=== PATIENT | male | born 1935 | race Caucasian/White ===

== ENCOUNTER 2019-04-12 06:19 | Inpatient (IN) | payer MEDICARE ==
[~2019-04-12] VITALS: Ht 172.7 cm; Wt 66.7 kg
[~2019-04-12 06:19] MED LIST: ASPIR-TRIN325 MG PO; CIPRO500 MG PO; COLACE100 MG PO; CORGARD40 MG PO; CORGARD80 MG PO; COUMADIN2.5 MG PO; COUMADIN5 M2 PO; FLOMAX0.4 MG PO; HYDROCHLOROTHIA25 MG PO; KLOR-CON 1010 ME1 PO; Meclizine25 MG PO; Motrin,Rufen800 MG PO; PROSCAR5 MG PO; PYRIDIUM200 MG; VICODIN 5/500 505 MG PO; [UNRECOGNIZED DRUG - REMARK]
[2019-04-12 06:20] VITALS: BP 162/87
--- NOTE | 2019-04-12 06:30 | NUR ---
PT PROMPTED THAT WE WILL NEED URINE. GIVEN URINAL.
--- NOTE | 2019-04-12 06:54 | NUR ---
PTS FLUIDS INITIATED PER DOC ORDERS. HE IS COMPLAINING OF BACK PAIN. BED IS IN LOW POSITION. WILL CONTINUE TO MONITOR.
[2019-04-12 07:15] LABS: BASO # 0.1 10*3/uL (0.0-0.1); BASO % 0.7 % (0.0-1.0); EOS # 0.1 10*3/uL (0.0-0.4); HEMATOCRIT 38.5 % (42.0-52.0); HEMOGLOBIN 12.5 g/dl (14.0-18.0); LYMPH # 1.1 10*3/uL (1.3-4.4); LYMPH % 7.6 % (27.0-41.0); MEAN CELL VOLUME 90.8 fl (80.0-94.0); MEAN CORPUSCULAR HGB 29.5 pg (27.0-31.0); MEAN CORPUSCULAR HGB CONC 32.5 g/dl (33.0-37.0); MEAN PLATELET VOLUME 9.4 fl (9.6-12.3); MONO # 0.4 10*3/uL (0.1-1.0); MONO % 2.5 % (3.0-9.0); NEUT # 12.8 10*3/uL (2.3-7.9); NEUT % 87.9 % (47.0-73.0); PLATELET COUNT AUTOMATED 324 10*3/uL (130-400); RED BLOOD COUNT 4.24 10*6/uL (4.50-5.90); RED CELL DISTRI WIDTH 14.2 % (0-14.5); WHITE BLOOD COUNT 14.5 10*3/uL (4.8-10.8)
[2019-04-12 07:28] LABS: INTERNATIONAL NORM RATIO 0.9 (2.0-3.5)
--- NOTE | 2019-04-12 07:30 | NUR ---
[place] 2.[address] [place].
[2019-04-12 07:31] LABS: ALKALINE PHOSPHATASE 73 U/L (45-117); BUN 23 mg/dl (7-24); CHLORIDE 101 mmol/L (98-107); CREATININE 1.23 mg/dL (0.70-1.30); LIPASE 140 U/L (73-393); POTASSIUM 3.2 mmol/L (3.5-5.1); SGOT/AST 20 IU/L (3-35); SGPT/ALT 25 U/L (12-78); SODIUM 134 mmol/L (136-145); TOTAL PROTEIN 7.8 gm/dL (6.4-8.2)
[2019-04-12 07:32] LABS: TROPONIN I < 0.015 ng/ml (<0.045)
[2019-04-12 08:07] LABS: BILIRUBIN NEGATIVE (NEGATIVE); BLOOD 2+ (NEGATIVE); CLARITY SL CLOUDY (CLEAR); COLOR YELLOW (YELLOW); GLUCOSE NEGATIVE (NEGATIVE); KETONE NEGATIVE (NEGATIVE); LEUKO ESTERASE NEGATIVE (NEGATIVE); NITRITE NEGATIVE (NEGATIVE); PH 6.5 (5.0-9.0); UROBILINOGEN 0.2 E.U./dl (0.2-1.0)
[2019-04-12 08:24] LABS: BACTERIA 1+; RBC TNTC rbc/hpf (0-2)
[2019-04-12 10:41] VITALS: BP 148/67
[2019-04-12] MEDS ORDERED: CORGARD40 M1 PO (11:34)
[2019-04-12] MEDS ORDERED: PEPCID20 MG PO (11:34)
[2019-04-12] MEDS ORDERED: MIRALAX17 GM PO (11:35)
--- NOTE | 2019-04-12 11:51 | NUR ---
[facility] , under the services of TONY Harp DO with a diagnosis of BACK PAIN, ABDM. PAIN. Chief complaint is DENIES C/O AT PRESNT. Patient arrived via bed from ER. Monitor applied. Initial assessment completed. Vital signs taken and recorded. TONY HARP DO notified of admission to the unit. Orders received. See assessment for past medical history, medications and allergies. Patient and/or family oriented to unit. [facility] visitation policy reviewed. Clothing/patient valuable form completed. DELLA MUNIZ
[2019-04-12 12:00] VITALS: BP 138/86
--- NOTE | 2019-04-12 13:36 | NUR ---
LEFT MESSAGE WITH DR. ALVARADO IN RE:CONSULT
--- NOTE | 2019-04-12 14:30 | NUR ---
SPOKE WITH DR. ALVARADO, NEW ORDERS GIVEN.
--- NOTE | 2019-04-12 15:48 | NUR ---
TYLENOL GIVEN FOR C/O LT SHOULDER PAIN. WILL MONITOR.
[2019-04-12 16:00] VITALS: BP 137/64
[2019-04-12 20:00] VITALS: BP 113/75
[2019-04-13] VITALS (9 sets, daily range): BP systolic 101–149; BP diastolic 56–80
--- NOTE | 2019-04-13 04:00 | NUR ---
Patient resting quietly with no c/o discomfort NOTED . Respirations easy and regular. Vital signs stable. No overt distress. SARITHA WOODS
--- NOTE | 2019-04-13 07:43 | NUR ---
Nursing screen received and chart review completed. Patient was admitted from [facility] assisted living with abdominal pain, dark urine, nausea and dizziness. If patient should have a decline in ADLs after medical work up, then please refer to Occupational Therapy for d/c planning. Thank you. Joanne Zaidi Otr/adri
[2019-04-13 07:53] LABS: BASO # 0.1 10*3/uL (0.0-0.1); BASO % 0.7 % (0.0-1.0); EOS # 0.2 10*3/uL (0.0-0.4); EOS % 1.6 % (1.0-4.0); HEMATOCRIT 39.5 % (42.0-52.0); HEMOGLOBIN 12.5 g/dl (14.0-18.0); LYMPH # 1.6 10*3/uL (1.3-4.4); LYMPH % 13.2 % (27.0-41.0); MEAN CELL VOLUME 91.4 fl (80.0-94.0); MEAN CORPUSCULAR HGB 28.9 pg (27.0-31.0); MEAN CORPUSCULAR HGB CONC 31.6 g/dl (33.0-37.0); MEAN PLATELET VOLUME 10.2 fl (9.6-12.3); MONO # 0.8 10*3/uL (0.1-1.0); MONO % 6.6 % (3.0-9.0); NEUT # 9.3 10*3/uL (2.3-7.9); NEUT % 77.6 % (47.0-73.0); PLATELET COUNT AUTOMATED 321 10*3/uL (130-400); RED BLOOD COUNT 4.32 10*6/uL (4.50-5.90); RED CELL DISTRI WIDTH 14.2 % (0-14.5); WHITE BLOOD COUNT 11.9 10*3/uL (4.8-10.8)
[2019-04-13 07:57] LABS: ALBUMIN 2.8 gm/dl (3.1-4.5); BUN 21 mg/dl (7-24); CHLORIDE 102 mmol/L (98-107); CHOLESTEROL 130 mg/dL (<200); CREATININE 1.02 mg/dL (0.70-1.30); PHOSPHOROUS 2.4 mg/dL (2.5-4.9); POTASSIUM 3.9 mmol/L (3.5-5.1); SGOT/AST 23 IU/L (3-35); SGPT/ALT 23 U/L (12-78); SODIUM 135 mmol/L (136-145); TOTAL PROTEIN 7.6 gm/dL (6.4-8.2); TRIGLYCERIDES 131 mg/dl (<150); VLDL CHOLESTEROL 26 mg/dL (6-40)
--- NOTE | 2019-04-13 08:01 | NUR ---
PHYSICAL THERAPY Screen received pt from assisted living facility please consult Physical Therapy if decline in functional status from baseline, thank you Tamy Perea PT
[2019-04-13 08:02] LABS: ALKALINE PHOSPHATASE 72 U/L (45-117); FREE T4 1.06 ng/dl (0.76-1.46); HDL CHOLESTEROL 33 mg/dl (40-60); LDL CHOLESTEROL 71 mg/dL (9-159)
[2019-04-13 08:20] LABS: VITAMIN D, 25-HYDROXY 79.5 ng/mL (30-100)
--- NOTE | 2019-04-13 09:00 | NUR ---
Demand Generation Manager in to talk to patient. Patient states lives at [facility] with other residents. There are no steps in the home. Physician: carlos [facility] Pharmacy: per [facility] Home health services: none Patient's level of ADLs: MINIMAL ASSIST Patient has working utilities: all working DME: [facility] Follow-up physician's appointment after d/c: will be made by hospitalist nurse director upon discharge Does patient want to access PORTAL?: no Discharge plan discussed with patient, he states he is a resident of [facility] and will return when medically stable, search planner will send updates to [facility] for when patient is stable for discharge, case management will follow. RYLIE ALBERTS
[2019-04-14] VITALS: BP 127/62
--- NOTE | 2019-04-14 07:42 | NUR ---
Patient clinicals faxed to [facility] for review. PT order for eval needed, hospitalists notified.
[2019-04-14 08:00] VITALS: BP 138/80
--- NOTE | 2019-04-14 09:00 | NUR ---
case management visits with patient, he states he has been a resident of [facility] for the past 3 years and is primarily wheelchair bound, he doesn't ambulate without someone's help, workforce planner will talk with [place] and see if patient can return when medically stable
--- NOTE | 2019-04-14 10:05 | NUR ---
racquel,RN called from [facility] to check on patient and questioned if he was getting discharged today. To call her back once physicians have rounded.
--- NOTE | 2019-04-14 11:08 | NUR ---
Contacted [facility] assisted [facility]; patient has resided there for 3 years and is ok to return when medically stable for discharge.
[2019-04-14 12:00] VITALS: BP 133/83
[2019-04-14 16:00] VITALS: BP 146/73
[2019-04-14 20:00] VITALS: BP 154/78
[2019-04-15] VITALS: BP 122/58
[2019-04-15 06:58] LABS: BASO # 0.1 10*3/uL (0.0-0.1); BASO % 0.9 % (0.0-1.0); EOS # 0.2 10*3/uL (0.0-0.4); EOS % 1.9 % (1.0-4.0); HEMATOCRIT 37.2 % (42.0-52.0); HEMOGLOBIN 12.1 g/dl (14.0-18.0); LYMPH # 1.8 10*3/uL (1.3-4.4); LYMPH % 15.5 % (27.0-41.0); MEAN CELL VOLUME 88.6 fl (80.0-94.0); MEAN CORPUSCULAR HGB 28.8 pg (27.0-31.0); MEAN CORPUSCULAR HGB CONC 32.5 g/dl (33.0-37.0); MEAN PLATELET VOLUME 9.6 fl (9.6-12.3); MONO # 0.8 10*3/uL (0.1-1.0); MONO % 6.7 % (3.0-9.0); NEUT # 8.5 10*3/uL (2.3-7.9); NEUT % 74.7 % (47.0-73.0); PLATELET COUNT AUTOMATED 330 10*3/uL (130-400); RED CELL DISTRI WIDTH 13.7 % (0-14.5); WHITE BLOOD COUNT 11.4 10*3/uL (4.8-10.8)
[2019-04-15 07:17] LABS: BUN 20 mg/dl (7-24); CHLORIDE 100 mmol/L (98-107); CREATININE 0.97 mg/dL (0.70-1.30); POTASSIUM 3.2 mmol/L (3.5-5.1); SODIUM 135 mmol/L (136-145)
[2019-04-15 08:00] VITALS: BP 118/70
--- NOTE | 2019-04-15 08:00 | NUR ---
VITALS STABLE. COOPER. A&OX2. PT HALLUCINATING STATED "THERES A WOMAN IN MY ROOM, I HAVE TO HOLD HER HAND" PT REACHED HAND OUT. HEART SOUNDS NORMAL. LUNGS CLEAR THROUGHOUT. ACTIVE BSX4, NON TENDER, NON DISTENDED. IV DRESSING IN LEFT HAND DRY AND INTACT. PPP. <3 CAP REFILL. SKIN PINK, WARM, DRY AND INTACT. SKIN TURGUR NON TENTING. SMALL PATENT, DRAINING MADDIE COLORED URINE. NO COMPLAINTS OF PAIN AT THIS TIME. 0/10 ON PAIN SCALE. WILL CONTINUE TO ASSESS. ANJALI SALAZAR, JOSSECC
--- NOTE | 2019-04-15 10:15 | NUR ---
SCDS APPLIED BLE. PT TOLERATED WELL. RESTING QUIETLY WITH EYES CLOSED. WILL CONTINUE TO ASSESS. JUNO GARCIA
[2019-04-15 11:58] VITALS: BP 108/68
[2019-04-15 16:00] VITALS: BP 125/76
--- NOTE | 2019-04-15 16:50 | NUR ---
Face to face encounter with Dr. Palmer regarding patients diet. See new orders.
--- NOTE | 2019-04-15 18:30 | NUR ---
Notified Dr. Olson that patient had c/o sever pain on right upper back gum in mouth. When assessed an abcess was observed. Per granddaughter patient just completed Amoxicillin for an abcess on his lower lip.
--- NOTE | 2019-04-15 19:15 | NUR ---
Patients granddaughter stated that patient ate well and tolerated diet.
[2019-04-15 20:00] VITALS: BP 101/53
[2019-04-16] VITALS: BP 108/49
--- NOTE | 2019-04-16 03:34 | NUR ---
MEDICATED WITH TYLENOL FOR C/O LEG PAIN.
[2019-04-16 06:40] LABS: BUN 20 mg/dl (7-24); CHLORIDE 99 mmol/L (98-107); CREATININE 1.11 mg/dL (0.70-1.30); POTASSIUM 3.5 mmol/L (3.5-5.1); SODIUM 135 mmol/L (136-145)
[2019-04-16 08:00] VITALS: BP 108/65
--- NOTE | 2019-04-16 08:00 | NUR ---
MEDICATED WITH PRN PO NORCO FOR C/O RIGHT LEG PAIN.
--- NOTE | 2019-04-16 09:15 | NUR ---
PRN PO NORCO NOT EFFECTIVE FOR RIGHT LEG PAIN, PER PATIENT.
[2019-04-16 12:00] VITALS: BP 97/56
[2019-04-16 16:00] VITALS: BP 114/68
[2019-04-16 20:00] VITALS: BP 126/72
--- NOTE | 2019-04-16 20:00 | NUR ---
MEDICATED WITH TYLENOL FOR C/O LEG PAIN.
--- NOTE | 2019-04-16 22:00 | NUR ---
VOICES NO FURTHER C/O OF LEG PAIN AT THIS TIME. TYLENOL EFFECTIVE. PT. VOICES NO OTHER C/O. CALL LIGHT WITHIN REACH.
[2019-04-17] VITALS: BP 91/52
[2019-04-17 08:00] VITALS: BP 119/56
[2019-04-17 12:00] VITALS: BP 86/67
[2019-04-17 13:00] VITALS: BP 91/56
[2019-04-17] MEDS ORDERED: GAVISCON ES TA1 EACH PO (14:21)
[2019-04-17] MEDS ORDERED: CARAFATE1 G1 PO (14:21)
[2019-04-17] MEDS ORDERED: PROTONIX40 MG PO (14:21)
--- NOTE | 2019-04-17 14:31 | NUR ---
DISCHARGE ORDER ENTERED FOR THE PATIENT TO GO BACK TO [facility]. PER GRANDDAUGHTER, PATIENT USUALLY TRANSPORTED BY AMBULANCE SERVICE. PHONING [facility] TO CONFIRM TIME TO EXPECT THE PATIENT.
--- NOTE | 2019-04-17 14:37 | NUR ---
WOUND PHOTO TAKEN EARLIER TODAY, NO ADDITIONAL PHOTO NEEDED PRIOR TO DISCHARGE. PER [facility] STAFF, BED IS READY FOR THE PATIENT ANY TIME THIS EVENING, WILL NEED A REPORT CALLED TO RECEIVING NURSE LATER.
[2019-04-17] MEDS ORDERED: TYLENOL325 M3 PO (14:38)
--- NOTE | 2019-04-17 14:53 | NUR ---
AMBULANCE TRANSPORT ARRANGED FOR 1729 WITH [facility].
[2019-04-17 16:00] VITALS: BP 110/71
[2019-04-17] MEDS ORDERED: CORGARD40 M1 PO (16:09)
--- NOTE | 2019-04-17 17:28 | NUR ---
PATIENT AWAITING TRANSPORT TO [facility] BY AMBULANCE, REPORT CALLED TO RECEIVING NURSE AT [facility].
--- NOTE | 2019-04-17 17:34 | NUR ---
PATIENT DISCHARGED TO [place] BY [facility] SERV[facility] AT THIS TIME.
== END 2019-04-17 17:34 | disposition home or self-care (01) | DRG 384 ==
LOC: ED 06:19 → 4E 10:51 → EDHOLD 10:51 → 5E 10:51 → EDHOLD 10:54 → 4E 11:04 → 5E 04-13 18:34
PROVIDERS: Emergency Medicine; Internal Medicine; Registered Nurse; ADMIT Family Medicine
PROC: 0DB98ZX Excision of Duodenum, Via Natural or Artificial Opening Endoscopic, Diagnostic (ICD-10-PCS; principal; 2019-04-13)
DX: K26.9 Duodenal ulcer, unspecified as acute or chronic, without hemorrhage or perforation (principal); E44.0 Moderate protein-calorie malnutrition; E87.2 Acidosis; I48.21 Permanent atrial fibrillation; N40.1 Benign prostatic hyperplasia with lower urinary tract symptoms; M54.5 Low back pain; R33.8 Other retention of urine; D72.829 Elevated white blood cell count, unspecified; Z66 Do not resuscitate; Z51.5 Encounter for palliative care; R59.0 Localized enlarged lymph nodes; E87.6 Hypokalemia; R31.9 Hematuria, unspecified; Z96.659 Presence of unspecified artificial knee joint; M06.9 Rheumatoid arthritis, unspecified; J44.9 Chronic obstructive pulmonary disease, unspecified; I10 Essential (primary) hypertension; K29.70 Gastritis, unspecified, without bleeding; K21.9 Gastro-esophageal reflux disease without esophagitis; K44.9 Diaphragmatic hernia without obstruction or gangrene; Z91.81 History of falling; Z90.49 Acquired absence of other specified parts of digestive tract; Z83.3 Family history of diabetes mellitus; Z80.8 Family history of malignant neoplasm of other organs or systems; Z79.82 Long term (current) use of aspirin; Z79.899 Other long term (current) drug therapy; Z68.22 Body mass index [BMI] 22.0-22.9, adult

== ENCOUNTER → 2019-07-01 | Day surgery (SDC) | payer MEDICARE ==
[~2019-07-01] VITALS: Ht 167.6 cm; Wt 61.7 kg
[~2019-07-01] MED LIST changes: +CARAFATE1 G1 PO; +CORGARD40 M1 PO; +GAVISCON ES TA1 EACH PO; +MIRALAX17 GM PO; +PEPCID20 MG PO; +PROTONIX40 MG PO; +TYLENOL325 M3 PO; +VITAMIN D10000 UNIT PO
[2019-07-01 13:15] VITALS: BP 137/59
[2019-07-01 15:05] VITALS: BP 121/61
[2019-07-01 15:20] VITALS: BP 109/65
[2019-07-01 15:35] VITALS: BP 118/67
== END | disposition home or self-care (01) ==
LOC: SDC 06-29 09:30
DX: K29.50 Unspecified chronic gastritis without bleeding (principal); K21.9 Gastro-esophageal reflux disease without esophagitis; I25.10 Atherosclerotic heart disease of native coronary artery without angina pectoris; I10 Essential (primary) hypertension; J44.9 Chronic obstructive pulmonary disease, unspecified; I48.91 Unspecified atrial fibrillation; M19.90 Unspecified osteoarthritis, unspecified site; Z98.890 Other specified postprocedural states; Z83.3 Family history of diabetes mellitus; Z79.899 Other long term (current) drug therapy

== ENCOUNTER 2020-03-05 21:18 | Observation (INO) | payer MEDICARE ==
[~2020-03-05] VITALS: Ht 172.7 cm; Wt 54.9 kg
[2020-03-05 21:20] VITALS: BP 150/91
[2020-03-05 21:38] LABS: BASO # 0.1 10*3/uL (0.0-0.1); BASO % 0.6 % (0.0-1.0); EOS # 0.2 10*3/uL (0.0-0.4); EOS % 2.1 % (1.0-4.0); LYMPH % 9.1 % (27.0-41.0); MEAN CELL VOLUME 88.4 fl (80.0-94.0); MEAN CORPUSCULAR HGB 27.2 pg (27.0-31.0); MEAN CORPUSCULAR HGB CONC 30.8 g/dl (33.0-37.0); MONO # 0.7 10*3/uL (0.1-1.0); MONO % 6.5 % (3.0-9.0); NEUT # 9.1 10*3/uL (2.3-7.9); NEUT % 81.4 % (47.0-73.0); PLATELET COUNT AUTOMATED 252 10*3/uL (130-400); RED BLOOD COUNT 4.41 10*6/uL (4.50-5.90); RED CELL DISTRI WIDTH 15.7 % (0-14.5); WHITE BLOOD COUNT 11.2 10*3/uL (4.8-10.8)
[2020-03-05 21:49] LABS: ACT PARTIAL THROMBO TIME 29.7 SECONDS (20.0-32.1)
[2020-03-05 21:55] VITALS: BP 132/74
[2020-03-05 22:06] LABS: ALBUMIN 3.2 gm/dl (3.1-4.5); ALKALINE PHOSPHATASE 77 U/L (45-117); BUN 27 mg/dl (7-24); CHLORIDE 109 mmol/L (98-107); CREATININE 1.03 mg/dL (0.70-1.30); POTASSIUM 4.5 mmol/L (3.5-5.1); SGOT/AST 17 IU/L (3-35); SGPT/ALT 23 U/L (12-78); SODIUM 139 mmol/L (136-145)
[2020-03-05 22:07] LABS: TROPONIN I < 0.015 ng/ml (<0.045)
[2020-03-05 22:24] VITALS: BP 116/74
[2020-03-05 23:18] VITALS: BP 135/85
[2020-03-06] VITALS (10 sets, daily range): BP systolic 97–154; BP diastolic 45–85
--- NOTE | 2020-03-06 00:12 | NUR ---
PATIENT IN BED AWAKE AND ALERT. NO DISTRESS NOTED. RESP EASY AND NONLABORED. VSS. RN WILL CONT TO MONITOR. CALL LIGHT WITHIN REACH
--- NOTE | 2020-03-06 02:42 | NUR ---
PT SELF POSITIONING FOR COMFORT AT THIS TIME. DENIES ANY NEEDS. BEDRAILS X2. CALL [place] WITH IN REACH. WILL CONTINUE TO MONITOR.
--- NOTE | 2020-03-06 03:43 | NUR ---
PATIENT YELLING OUT IN PAIN AT THIS TIME. PER PATIENT ITS HIS LEGS THAT ARE HURTING HIM. MEDICATED PATIENT PER EMAR AT THIS TIME. RESPIRATIONS EASY, NON-LABORED ON ROOM AIR. RN WILL CONTINUE TO MONITOR.
[2020-03-06 03:56] LABS: BASO # 0.1 10*3/uL (0.0-0.1); BASO % 0.7 % (0.0-1.0); EOS # 0.2 10*3/uL (0.0-0.4); EOS % 1.9 % (1.0-4.0); HEMATOCRIT 37.8 % (42.0-52.0); LYMPH # 1.4 10*3/uL (1.3-4.4); LYMPH % 14.4 % (27.0-41.0); MEAN CELL VOLUME 90.9 fl (80.0-94.0); MEAN CORPUSCULAR HGB 28.1 pg (27.0-31.0); MEAN PLATELET VOLUME 11.3 fl (9.6-12.3); MONO # 0.8 10*3/uL (0.1-1.0); MONO % 8.7 % (3.0-9.0); NEUT # 6.9 10*3/uL (2.3-7.9); NEUT % 74.1 % (47.0-73.0); PLATELET COUNT AUTOMATED 216 10*3/uL (130-400); RED BLOOD COUNT 4.16 10*6/uL (4.50-5.90); RED CELL DISTRI WIDTH 15.7 % (0-14.5); WHITE BLOOD COUNT 9.4 10*3/uL (4.8-10.8)
[2020-03-06 04:02] LABS: ACT PARTIAL THROMBO TIME 30.8 SECONDS (20.0-32.1)
[2020-03-06 04:07] LABS: ALBUMIN 3.1 gm/dl (3.1-4.5); ALKALINE PHOSPHATASE 73 U/L (45-117); BUN 25 mg/dl (7-24); CHLORIDE 108 mmol/L (98-107); CREATININE 0.97 mg/dL (0.70-1.30); SGOT/AST 16 IU/L (3-35); SGPT/ALT 21 U/L (12-78); SODIUM 139 mmol/L (136-145); TOTAL PROTEIN 6.9 gm/dL (6.4-8.2)
--- NOTE | 2020-03-06 04:11 | NUR ---
PT C/O LEG PAIN BILATERALLY. DENIES NEEDS AT THIS TIME. BEDRAILS X2. CALL LIGHT WITHIN REACH. WILL CONTINUE TO MONITOR.
--- NOTE | 2020-03-06 05:17 | NUR ---
SCRATCHES NOTED TO LEGS. NO OPEN WOUNDS. NO PHOTOS TAKEN AT THIS TIME.
--- NOTE | 2020-03-06 05:27 | NUR ---
LAST EKG PERFORMED BY RESPIRATORY. PT STATES THAT MEDICATION HAS BEEN EFFECTIVE. SELF POSITIONS FOR COMFORT. BED RAILS X 2. CALL LIGHT WITH IN REACH. DENIES ANY OTHER NEEDS AT THIS TIME. WILL CONTINUE TO MONITOR.
--- NOTE | 2020-03-06 06:13 | NUR ---
PT SLEEPING ON COT. PT SELF POSITION FOR COMFORT. CALL LIGHT WITH IN REACH.
--- NOTE | 2020-03-06 06:50 | NUR ---
PT UP TO BEDSIDE COMMODE FOR BM. BED WET. CHANGED BED LINNENS AND PT CLOTHING. PT CURRENTLY USING URINAL. WILL CONTINUE TO MONITOR.
--- NOTE | 2020-03-06 07:35 | NUR ---
PT RESTING, PT VOICES NO COPMPLAINTS, RESTING QUIETLY. BREAKFAST ORDER. PT REPORTS NO CHEST PAIN OR PALPATIONS. PT REMAINS A-FIB AT A CONTROLLED RATE IN THE 60-70'S. DENIES ANY SOB. LUNGS DINIMISHED BILATERAL. ABD SOFT NON-TENDER.
--- NOTE | 2020-03-06 09:00 | NUR ---
patient is a resident of [facility] and will return when discharged. case management iwll follow
--- NOTE | 2020-03-06 10:46 | NUR ---
[facility] bedside echo done. pt up to the bedside commode with 1 assist. pt assisit back to bed. call light in reach. will monitor.
[2020-03-06] MEDS ORDERED: DICLOFENAC SOD100 G1 T (12:43)
[2020-03-06] MEDS ORDERED: B121000 MCG/1 IM (12:44)
[2020-03-06] MEDS ORDERED: HYDROCODONE-AC1 EAC1 PO (12:45)
[2020-03-06] MEDS ORDERED: FLOMAX0.4 MG PO (12:49)
[2020-03-06] MEDS ORDERED: VITAMIN D325 MCG PO (12:51)
[2020-03-06] MEDS ORDERED: MUSCLE RUB CRE113 GM T (12:52)
[2020-03-06] MEDS ORDERED: [UNRECOGNIZED DRUG - OTHER] PO (12:56)
[2020-03-06] MEDS ORDERED: GNP CLEARLAX PO (12:59)
[2020-03-06] MEDS ORDERED: TRAMADOL HCL50 MG PO (13:00)
--- NOTE | 2020-03-06 13:23 | NUR ---
PT RESTING QUIELTY, NO DISTRESS NOTED. LUNCH TRAY ORDERED.
--- NOTE | 2020-03-06 16:15 | NUR ---
PT RESTING IN BED. URINAL PLACED. REPOSITIONED FOR COMFORT. CALL LIGHT IN REACH. WILL MONITOR.
--- NOTE | 2020-03-06 16:51 | NUR ---
dr love notified of consult. no new oeders obtained.
[2020-03-06] MEDS ORDERED: PANTOPRAZOLE SO40 MG PO (17:47)
--- NOTE | 2020-03-06 18:20 | NUR ---
A 84, admitted to 5E, under the services of TONY Lipscomb DO with a diagnosis of PALPITATIONS, CHEST PAIN. Chief complaint is C/O CHEST PAIN AND LEFT SHOULDER PAIN, HX AFIB. Patient arrived via bed from ER. Monitor applied. Initial assessment completed. Vital signs taken and recorded. TONY LIPSCOMB DO notified of admission to the unit. Orders received. See assessment for past medical history, medications and allergies. Patient and/or family oriented to unit. [address] visitation policy reviewed. Clothing/patient valuable form completed. LEA DIAZ R
--- NOTE | 2020-03-06 19:35 | NUR ---
PRN PO TYLENOL SOMEWHAT EFFECTIVE, PER PATIENT.
[2020-03-07] VITALS: BP 148/75
--- NOTE | 2020-03-07 02:15 | NUR ---
PATIENT SCREAMING OUT. ALERT TO SELF ONLY. UNSURE OF WHERE IS HE OR WHY HE IS HERE. ATTEMPTED TO REORIENT. UNSUCCESSFUL. PATIENT MOVED CLOSER TO THE DESK, INTO 525. BED IN LOWEST POSITION,CALL LIGHT WITHIN REACH, BED ALARM ON. WILL CONTINUE TO MONITOR.
[2020-03-07 06:19] LABS: BASO # 0.1 10*3/uL (0.0-0.1); EOS # 0.2 10*3/uL (0.0-0.4); EOS % 2.3 % (1.0-4.0); LYMPH # 1.1 10*3/uL (1.3-4.4); LYMPH % 13.3 % (27.0-41.0); MEAN CELL VOLUME 88.6 fl (80.0-94.0); MEAN CORPUSCULAR HGB 27.3 pg (27.0-31.0); MEAN CORPUSCULAR HGB CONC 30.8 g/dl (33.0-37.0); MEAN PLATELET VOLUME 9.8 fl (9.6-12.3); MONO # 0.6 10*3/uL (0.1-1.0); MONO % 7.6 % (3.0-9.0); NEUT # 6.3 10*3/uL (2.3-7.9); NEUT % 75.6 % (47.0-73.0); PLATELET COUNT AUTOMATED 262 10*3/uL (130-400); RED CELL DISTRI WIDTH 15.6 % (0-14.5); WHITE BLOOD COUNT 8.3 10*3/uL (4.8-10.8)
[2020-03-07 06:40] LABS: ALBUMIN 3.1 gm/dl (3.1-4.5); ALKALINE PHOSPHATASE 77 U/L (45-117); BUN 24 mg/dl (7-24); CHLORIDE 108 mmol/L (98-107); CREATININE 1.06 mg/dL (0.70-1.30); POTASSIUM 3.9 mmol/L (3.5-5.1); SGOT/AST 16 IU/L (3-35); SGPT/ALT 19 U/L (12-78); SODIUM 141 mmol/L (136-145)
--- NOTE | 2020-03-07 08:23 | NUR ---
DR. RECINOS IN TO SEE PATIENT RE: PLAN OF CARE, JOINTS ASSESSED FOR RHEUMATOID ARTHRITIS, PATIENT HAS CHRONIC PAIN AND MOBILITY ISSUES FROM THE DISEASE AND DEFORMITY TO RIGHT HAND/KNUCKLES.
--- NOTE | 2020-03-07 09:35 | NUR ---
PHYSICAL THERAPY Nursing screen received and chart reviewed. Patient admitted from [facility] and reports using a wheelchair for safety with mobility. Please recommend skilled PT evaluation if decline in functional status presents. Thank you. Kelly Abad,PT,DPT
[2020-03-07] MEDS ORDERED: VITAMIN D350 MC2 PO (09:42)
--- NOTE | 2020-03-07 10:32 | NUR ---
TEACHER TUTOR NOTIFIED OF DISCHARGE. TEACHER TUTOR SPOKE WITH JENNIFER ZAVALA. TEACHER TUTOR CONTACTED [facility] AND SCHEDULED A 1PM TRANSPORT. TEACHER TUTOR CONTACTED [facility] AND [facility], BOTH PARTIES ARE AWARE OF DISCHARGE/TRANSPORT. WILL FAX DISCHARGE ORDERS TO [facility].
[2020-03-07 12:00] VITALS: BP 148/75
--- NOTE | 2020-03-07 12:56 | NUR ---
PRE[facility]. BOARDING MOTHER TIME 1PM.
--- NOTE | 2020-03-07 12:59 | NUR ---
REPORT CALLED TO RECEIVING NURSE AT [facility].
--- NOTE | 2020-03-07 13:34 | NUR ---
PATIENT DISCHARGED TO [place] BY [facility] AT THIS TIME.
== END 2020-03-07 13:37 | disposition home or self-care (01) ==
LOC: ED 21:18 → EDHOLD 22:56 → 5E 03-06 16:28
PROVIDERS: Emergency Medicine; Internal Medicine; Student in an Organized Health Care Education/Training Program; ADMIT Student in an Organized Health Care Education/Training Program; ATTEND Student in an Organized Health Care Education/Training Program
DX: R07.89 Other chest pain (principal); R00.2 Palpitations; M54.9 Dorsalgia, unspecified; R61 Generalized hyperhidrosis; D72.829 Elevated white blood cell count, unspecified; E87.8 Other disorders of electrolyte and fluid balance, not elsewhere classified; D64.9 Anemia, unspecified; M06.9 Rheumatoid arthritis, unspecified; J44.9 Chronic obstructive pulmonary disease, unspecified; I11.0 Hypertensive heart disease with heart failure; I50.9 Heart failure, unspecified; M05.751 Rheumatoid arthritis with rheumatoid factor of right hip without organ or systems involvement; M05.722 Rheumatoid arthritis with rheumatoid factor of left elbow without organ or systems involvement

== ENCOUNTER 2020-08-07 12:19 | Emergency (ER) | payer MEDICARE ==
[~2020-08-07] VITALS: Ht 172.7 cm; Wt 57.2 kg
[~2020-08-07 12:19] MED LIST changes: +B121000 MCG/1 IM; +DICLOFENAC SOD100 G1 T; +GNP CLEARLAX PO; +HYDROCODONE-AC1 EAC1 PO; +MUSCLE RUB CRE113 GM T; +PANTOPRAZOLE SO40 MG PO; +TRAMADOL HCL50 MG PO; +VITAMIN D325 MCG PO; +VITAMIN D350 MC2 PO; +[UNRECOGNIZED DRUG - OTHER] PO
[2020-08-07 12:23] VITALS: BP 107/72
[2020-08-07 13:15] LABS: BILIRUBIN 1+ (Negative); BLOOD 3+ (Negative); CLARITY Turbid (Clear); GLUCOSE Negative (Negative); KETONE Negative (Negative); LEUKO ESTERASE 2+ (Negative); NITRITE Negative (Negative); PH 5.5 (4.5-8.0); UROBILINOGEN 0.2 E.U./dl (0.0-1.0)
[2020-08-07 13:28] LABS: RBC TNTC rbc/hpf (0-2)
[2020-08-07 13:29] LABS: COLOR Red (Yellow)
[2020-08-07 13:45] LABS: BASO # 0.1 10*3/uL (0.0-0.1); BASO % 0.7 % (0.0-1.0); EOS # 0.2 10*3/uL (0.0-0.4); HEMATOCRIT 40.7 % (42.0-52.0); LYMPH % 11.1 % (27.0-41.0); MEAN CORPUSCULAR HGB 27.7 pg (27.0-31.0); MEAN CORPUSCULAR HGB CONC 30.7 g/dl (33.0-37.0); MEAN PLATELET VOLUME 9.6 fl (9.6-12.3); MONO # 0.6 10*3/uL (0.1-1.0); MONO % 6.8 % (3.0-9.0); NEUT # 7.2 10*3/uL (2.3-7.9); NEUT % 79.1 % (47.0-73.0); PLATELET COUNT AUTOMATED 222 10*3/uL (130-400); RED BLOOD COUNT 4.52 10*6/uL (4.50-5.90); RED CELL DISTRI WIDTH 14.6 % (0-14.5); WHITE BLOOD COUNT 9.1 10*3/uL (4.8-10.8)
[2020-08-07 13:58] LABS: ACT PARTIAL THROMBO TIME 29.5 SECONDS (20.0-32.1)
[2020-08-07 13:59] LABS: ALBUMIN 3.1 gm/dl (3.1-4.5); ALKALINE PHOSPHATASE 79 U/L (45-117); BUN 23 mg/dl (7-24); CHLORIDE 109 mmol/L (98-107); LIPASE 96 U/L (73-393); SGOT/AST 9 IU/L (3-35); SGPT/ALT 18 U/L (12-78); SODIUM 138 mmol/L (136-145); TOTAL PROTEIN 7.1 gm/dL (6.4-8.2)
[2020-08-07] MEDS ORDERED: CIPRO250 MG PO (15:53)
== END 2020-08-07 16:04 ==
LOC: ED 12:19
PROVIDERS: Emergency Medicine
DX: N39.0 Urinary tract infection, site not specified (principal); I25.10 Atherosclerotic heart disease of native coronary artery without angina pectoris; M19.90 Unspecified osteoarthritis, unspecified site; I10 Essential (primary) hypertension; J44.9 Chronic obstructive pulmonary disease, unspecified; I48.91 Unspecified atrial fibrillation; K21.9 Gastro-esophageal reflux disease without esophagitis; Z79.899 Other long term (current) drug therapy; Z98.890 Other specified postprocedural states; Z90.49 Acquired absence of other specified parts of digestive tract; Z96.659 Presence of unspecified artificial knee joint; Z95.818 Presence of other cardiac implants and grafts

== ENCOUNTER 2021-01-17 06:36 | Emergency (ER) | payer MEDICARE ==
[~2021-01-17] VITALS: Ht 172.7 cm; Wt 56.7 kg
[~2021-01-17 06:36] MED LIST changes: +CIPRO250 MG PO
[2021-01-17 06:37] VITALS: BP 162/89
[2021-01-17] MEDS ORDERED: NYAMYC15 GM T (09:22)
== END 2021-01-17 09:23 | disposition home or self-care (01) ==
LOC: ED 06:36
DX: S70.01XA Contusion of right hip, initial encounter (principal); Z90.49 Acquired absence of other specified parts of digestive tract; Z79.899 Other long term (current) drug therapy; X58.XXXA Exposure to other specified factors, initial encounter; Y93.89 Activity, other specified; Y92.89 Other specified places as the place of occurrence of the external cause; Y99.9 Unspecified external cause status

== ENCOUNTER 2021-08-26 15:58 | Emergency (ER) | payer MEDICARE ==
[~2021-08-26] VITALS: Wt 70.3 kg
[~2021-08-26 15:58] MED LIST changes: +NYAMYC15 GM T
[2021-08-26 16:49] LABS: BASO # 0.1 10*3/uL (0.0-0.1); BASO % 0.9 % (0.0-1.0); EOS # 0.2 10*3/uL (0.0-0.4); EOS % 2.9 % (1.0-4.0); HEMATOCRIT 39.9 % (42.0-52.0); LYMPH # 1.2 10*3/uL (1.3-4.4); LYMPH % 17.3 % (27.0-41.0); MEAN CELL VOLUME 92.8 fl (80.0-94.0); MEAN CORPUSCULAR HGB 29.3 pg (27.0-31.0); MEAN CORPUSCULAR HGB CONC 31.6 g/dl (33.0-37.0); MEAN PLATELET VOLUME 9.8 fl (9.6-12.3); MONO # 0.5 10*3/uL (0.1-1.0); MONO % 7.3 % (3.0-9.0); NEUT % 71.3 % (47.0-73.0); PLATELET COUNT AUTOMATED 184 10*3/uL (130-400); RED CELL DISTRI WIDTH 14.8 % (0-14.5); WHITE BLOOD COUNT 6.9 10*3/uL (4.8-10.8)
[2021-08-26 17:06] LABS: ALKALINE PHOSPHATASE 55 U/L (45-117); BUN 36 mg/dl (7-24); CHLORIDE 109 mmol/L (98-107); CREATININE 1.22 mg/dL (0.70-1.30); POTASSIUM 4.2 mmol/L (3.5-5.1); SGOT/AST 14 IU/L (3-35); SGPT/ALT 15 U/L (12-78); SODIUM 140 mmol/L (136-145); TOTAL PROTEIN 7.2 gm/dL (6.4-8.2); URIC ACID 5.4 mg/dL (3.5-7.2)
[2021-08-26 22:41] VITALS: BP 159/86
== END 2021-08-26 23:14 | disposition home or self-care (01) ==
LOC: ED 15:58
PROVIDERS: Emergency Medicine
DX: M12.822 Other specific arthropathies, not elsewhere classified, left elbow (principal); Z79.899 Other long term (current) drug therapy; Z98.890 Other specified postprocedural states; Z90.49 Acquired absence of other specified parts of digestive tract

== ENCOUNTER 2022-05-26 23:04 | Emergency (ER) | payer MEDICARE ==
[~2022-05-26] VITALS: Ht 167.6 cm; Wt 54.9 kg
[2022-05-26 23:10] VITALS: BP 142/83
== END 2022-05-27 03:00 | disposition home or self-care (01) ==
LOC: ED 23:04
DX: S00.93XA Contusion of unspecified part of head, initial encounter (principal); Z98.890 Other specified postprocedural states; Z90.49 Acquired absence of other specified parts of digestive tract; M25.522 Pain in left elbow; M25.552 Pain in left hip; M25.562 Pain in left knee; M25.512 Pain in left shoulder; W19.XXXA Unspecified fall, initial encounter; Y93.89 Activity, other specified; Y92.89 Other specified places as the place of occurrence of the external cause; Y99.8 Other external cause status